=== PATIENT | female | born 2000 | race Caucasian/White ===

== ENCOUNTER 2024-12-31 11:45 | Emergency (ER) | payer OTHER, SELFPAY ==
[2024-12-31 11:51] VITALS: BP 136/71; PULSE 113; TEMP 37.6; O2SAT 99; BMI 22.3
--- NOTE | 2024-12-31 12:02 | ED_ITS ---
HPI - URI/Sore Throat General Chief Complaint: Upper Respiratory Infection Stated Complaint: INFLUENZIA A SOB Time Seen by Provider: 12/31/24 11:47 Source: patient Limitations: no limitations History of Present Illness HPI Narrative: 24-year-old female presents for 2-day history of cough and congestion. Her children have been diagnosed with influenza. No vomiting or diarrhea. Related Data Previous Rx's ?Medication ?Instructions ?Recorded albuterol sulfate 90 mcg/actuation 2 inh inhalation Q4H PRN shortness 12/31/24 aerosol inhaler of breath or wheezing #8.5 grams Allergies Allergy/AdvReac Type Severity Reaction Status Date / Time aspirin Allergy Severe Anaphylaxis Verified 12/31/24 11:51 Review of Systems ROS Narrative A ten point review of systems is negative except as noted above. PFSH PFSH Social History Little interest or pleasure in doing things: not at all Feeling down, depressed, or hopeless: not at all Exam Narrative Exam Narrative: Nurses note and vital signs reviewed and patient is not hypoxic. General: The patient appears well and in no apparent distress. Patient is resting comfortably on cart. Skin: Warm, dry, no pallor noted. There is no rash noted. Head: Normocephalic, atraumatic Eye: Normal conjunctiva, no drainage Ears, Nose, Mouth, and Throat: oral mucosa is moist. Nares patent. Cardiovascular: Regular Rate and Rhythm Respiratory: Patient is in no distress, no accessory muscle use, lungs are clear to auscultation, no wheezing, rales or rhonchi Back: non-tender GI: Soft and nontender Musculoskeletal: The patient has no evidence of calf tenderness, no pitting edema, symmetrical pulses noted bilaterally Neurological: Awake and alert Psychiatric: Cooperative Constitutional Vital Signs, click to edit/add: Last Vital Signs Temp 99.6 F 12/31/24 11:51 Pulse 113 H 12/31/24 11:51 Resp 18 12/31/24 11:51 BP 136/71 12/31/24 11:51 Pulse Ox 99 12/31/24 11:51 O2 Del Method Room Air 12/31/24 11:51 Course Vital Signs Vital signs: Vital Signs Temperature 99.6 F 12/31/24 11:51 Pulse Rate 113 H 12/31/24 11:51 Respiratory Rate 18 12/31/24 11:51 Blood Pressure 136/71 12/31/24 11:51 Pulse Oximetry 99 12/31/24 11:51 Oxygen Delivery Method Room Air 12/31/24 11:51 Temperature 99.6 F 12/31/24 11:51 Pulse Rate 113 H 12/31/24 11:51 Respiratory Rate 18 12/31/24 11:51 Blood Pressure 136/71 12/31/24 11:51 Pulse Oximetry 99 12/31/24 11:51 Oxygen Delivery Method Room Air 12/31/24 11:51 MDM - URI/Sore Throat MDM Narrative Medical decision making narrative: COVID and influenza swabs are negative. My clinical impression is that she has a viral URI. Treatment diagnosis and follow-up were discussed with the patient. There is no indication for an antibiotic. Differential Diagnosis Differential diagnosis: Likely upper respiratory infection, viral infection, influenza and other (COVID) Lab Data Attestation: I reviewed the patient's lab results. Labs: Lab Results 12/31/24 Range/Units 12:03 Influenza Type A Ag Negative Influenza Type B Ag Negative SARS-CoV-2 Ag (CV2AG) Negative (NEGATIVE) Discharge Plan Discharge Chief Complaint: Upper Respiratory Infection Clinical Impression: Upper respiratory infection Patient Disposition: Home, Self-Care Time of Disposition Decision: 13:05 Condition: Good Mode of Transportation: Private Vehicle Prescriptions / Home Meds: New albuterol sulfate 90 mcg/actuation HFA aerosol inhaler 2 inh inhalation Q4H PRN (Reason: shortness of breath or wheezing) Qty: 8.5 0RF Print Language: Albanian Instructions: Upper Respiratory Infection (ED) Referrals: Physician,Non-Staff, MD [Primary Care Provider] - 1 week
[2024-12-31 12:26] LABS: Influenza Virus A Antigen Negative; Influenza Virus B Antigen Negative; Internal Control Within Normal Limits; SARS-CoV-2 Ag NEGATIVE (NEGATIVE)
== END 2024-12-31 13:16 | disposition home or self-care (01) ==
PROVIDERS: Emergency Provider Emergency Medicine
DX: J06.9 Acute upper respiratory infection, unspecified (principal)
CPT/HCPCS: 87804; 87811; 99283

== ENCOUNTER 2025-04-20 15:26 | Emergency (ER) | payer BC, OTHER, SELFPAY ==
[2025-04-20 15:37] VITALS: BP 115/74; PULSE 68; TEMP 37; O2SAT 97; BMI 22.3
--- NOTE | 2025-04-20 15:51 | ED_ITS ---
HPI HPI - General Adult General Chief complaint: Dental/Oral Stated complaint: Dental Pain Time Seen by Provider: 04/20/25 15:29 Source: patient and family Mode of arrival: walk-in Limitations: no limitations History of Present Illness HPI narrative: 24-year-old female presents to the emergency department for a chief complaint of toothache. She is complaining of pain primarily to the left upper dentition and she knows she has bad teeth. She does not have a dentist. It has been hurting for a few days and it is throbbing and moderate to severe. No difficulty breathing or swallowing and she has not had a fever. Related Data Previous Rx's ?Medication ?Instructions ?Recorded albuterol sulfate 90 mcg/actuation 2 inh inhalation Q4 H PRN shortness 12/31/24 aerosol inhaler of breath or wheezing #8.5 g amari acetaminophen 300 mg-codeine 30 mg 1 tab PO Q6H PRN pa in 5 days #20 04/20/25 tablet tabs ibuprofen 800 mg tablet 800 mg PO Q8H PRN pain #20 t abs 04/20/25 penicillin V potassium 250 mg 250 mg PO QID 10 days #4 0 tabs 04/20/25 tablet Allergies Allergy/AdvReac Type Severity Reaction Status Date / Time aspirin Allergy Severe Anaphylaxis Verified 04/20/25 15:37 Review of Systems ROS Narrative A ten point review of systems is negative except as noted above. PFSH PFSH Social History Little interest or pleasure in doing things: not at all Feeling down, depressed, or hopeless: not at all Exam Narrative Exam Narrative: Nurses note and vital signs reviewed and patient is not hypoxic. General: The patient appears well and in no apparent distress. Patient is resting comfortably on cart. Skin: Warm, dry, no pallor noted. There is no rash noted. Head: Normocephalic, atraumatic Eye: Normal conjunctiva, no drainage Ears, Nose, Mouth, and Throat: oral mucosa is moist. Nares patent. No facial swelling or erythema. No swelling to the floor of her mouth. No gingival swelling or erythema. Dental caries is noted in various areas in her mouth. No bleeding or pus present. Cardiovascular: Regular Rate and Rhythm Respiratory: Patient is in no distress, no accessory muscle use, lungs are clear to auscultation, no wheezing, rales or rhonchi Back: non-tender GI: Soft and nontender Musculoskeletal: No joint swelling Neurological: A&O, normal speech Psychiatric: Cooperative Constitutional Vital Signs, click to edit/add: Last Vital Signs Temp 98.6 F 04/20/25 15:37 Pulse 68 04/20/25 15:37 Resp 18 04/20/25 15:37 BP 115/74 04/20/25 15:37 Pulse Ox 97 04/20/25 15:37 O2 Del Method Room Air 04/20/25 15:37 Course Vital Signs Vital signs: Vital Signs Temperature 98.6 F 04/20/25 15:37 Pulse Rate 68 04/20/25 15:37 Respiratory Rate 18 04/20/25 15:37 Blood Pressure 115/74 04/20/25 15:37 Pulse Oximetry 97 04/20/25 15:37 Oxygen Delivery Method Room Air 04/20/25 15:37 Temperature 98.6 F 04/20/25 15:37 Pulse Rate 68 04/20/25 15:37 Respiratory Rate 18 04/20/25 15:37 Blood Pressure 115/74 04/20/25 15:37 Pulse Oximetry 97 04/20/25 15:37 Oxygen Delivery Method Room Air 04/20/25 15:37 Medical Decision Making MDM Narrative Medical decision making narrative: She was prescribed penicillin, ibuprofen, and Tylenol 3. She was given dental list and was advised to follow-up. Treatment diagnosis and follow-up were discussed with the patient. Differential Diagnosis Differential Diagnosis: Dental caries, gingivitis Discharge Plan Discharge Chief Complaint: Dental/Oral Clinical Impression: Toothache, Dental caries Patient Disposition: Home, Self-Care Prescriptions / Home Meds: New acetaminophen-codeine 300-30 mg tablet 1 tab PO Q6H PRN (Reason: pain) 5 Days Qty: 20 0RF penicillin V potassium 250 mg tablet 250 mg PO QID 10 Days Qty: 40 0RF ibuprofen 800 mg tablet 800 mg PO Q8H PRN (Reason: pain) Qty: 20 0RF No Action albuterol sulfate 90 mcg/actuation HFA aerosol inhaler 2 inh inhalation Q4H PRN (Reason: shortness of breath or wheezing) Qty: 8.5 0RF Print Language: Khmer Instructions: Toothache (ED) Additional Instructions: Follow-up with dentistry, list provided Referrals: Physician,Non-Staff, MD [Primary Care Provider] - 1 week
== END 2025-04-20 16:00 | disposition home or self-care (01) ==
PROVIDERS: Emergency Provider Emergency Medicine
DX: K08.89 Other specified disorders of teeth and supporting structures (principal); K02.9 Dental caries, unspecified
CPT/HCPCS: 99283